=== PATIENT | male | born 1955 | race Caucasian/White ===

== ENCOUNTER → 2017-03-07 | Outpatient (CLI) | payer OTHER ==
[2017-02-19 09:08] VITALS: BP 118/69
[~2017-03-07] MED LIST: AMIO200T2 PO; ASPI325T11 PO; ATOR40TA59 PO; FURO40TA4 PO; METO25TA4 PO; OXYC1TAB7 PO
--- NOTE | 2017-03-07 12:19 | RAD ---
Chest, 2 views, 03/07/2017: History: Postop CABG Comparison is made to a study from 02/17/2017. Sternal wires are in place. A coronary artery stent overlies the superior aspect of the heart. The heart is at the upper limits of normal in size. The pulmonary vascularity is normal. There is a small amount of left-sided pleural fluid with mild underlying streaky left basilar atelectasis. The right lung is clear. No right-sided pleural fluid is seen. IMPRESSION: Small postoperative left pleural effusion with underlying left basilar atelectasis.
== END | disposition home or self-care (01) ==
LOC: RAD 11:45
PROVIDERS: ATTEND Thoracic Surgery (Cardiothoracic Vascular Surgery)
DX: J90 Pleural effusion, not elsewhere classified (principal); I25.10 Atherosclerotic heart disease of native coronary artery without angina pectoris; Z95.1 Presence of aortocoronary bypass graft; Z95.5 Presence of coronary angioplasty implant and graft; Z98.890 Other specified postprocedural states
CPT/HCPCS: 71020

== ENCOUNTER → 2017-11-06 | Outpatient (CLI) | payer OTHER ==
[2017-11-06 11:51] LABS: ADD MAN DIFF? NO
[2017-11-06 12:01] LABS: BASO % 1 % (0-3); EOS % 3 % (0-3); HEMATOCRIT 43.5 % (39.0-53.0); HEMOGLOBIN 14.4 g/dL (13.0-17.5); LYMPH # 1.7 x10^3/uL (1.0-4.8); LYMPH % 23 % (24-48); MEAN CORPUSCULAR HEMOGLOBIN 28 pg (25-35); MEAN CORPUSCULAR HGB CONC 33 g/dL (31-37); MEAN CORPUSCULAR VOLUME 83 fL (79-100); MONO % 9 % (0-9); NEUT % 64 % (31-73); PLATELET COUNT 174 x10^3/uL (140-400); RED BLOOD COUNT 5.23 x10^6/uL (4.30-5.70); RED CELL DISTRIBUTION WIDTH 14.7 % (11.5-14.5); WHITE BLOOD COUNT 7.4 x10^3/uL (4.0-11.0)
[2017-11-06 12:13] LABS: ANION GAP 11 (6-14); BLOOD UREA NITROGEN 16 mg/dL (8-26); CALCIUM 8.7 mg/dL (8.5-10.1); CARBON DIOXIDE 27 mmol/L (21-32); CHLORIDE 104 mmol/L (98-107); GFR 76.2; GLUCOSE 103 mg/dL (70-99); POTASSIUM 4.3 mmol/L (3.5-5.1); SODIUM 142 mmol/L (136-145)
== END | disposition home or self-care (01) ==
LOC: LAB 11:35
DX: I25.10 Atherosclerotic heart disease of native coronary artery without angina pectoris (principal); I10 Essential (primary) hypertension; Z95.1 Presence of aortocoronary bypass graft
CPT/HCPCS: 36415; 80048; 84443; 85025